=== PATIENT | male | born 1960 | race Caucasian/White ===

== ENCOUNTER 2020-10-24 15:47 | Emergency (ER) | payer OTHER, SELFPAY ==
[2020-10-24 17:10] LABS: ALT (SGPT) 59 U/L (8-55); AST (SGOT) 48 U/L (5-34); Albumin 3.9 g/dL (3.4-4.8); Alkaline Phosphatase 142 U/L (40-110); Anion Gap 18 mmol/L (10-20); BUN (Urea Nitrogen) 20 mg/dL (8.4-25.7); Bilirubin, Total 0.7 mg/dL (0.2-1.2); Calc. Creatinine Clearance 0 mL/min (70-130); Calcium 9.5 mg/dL (7.8-10.44); Carbon Dioxide 23 mmol/L (23-31); Chloride 97 mmol/L (98-107); Globulin 4.6 g/dL (2.4-3.5); Glucose 102 mg/dL (80-115); Potassium 3.7 mmol/L (3.5-5.1); Protein, Total 8.5 g/dL (5.8-8.1); Sodium 134 mmol/L (136-145)
[2020-10-24 17:21] LABS: Band 13 % (5-11); Hemoglobin 14.2 g/dL (14.0-18.0); Lymphocytes 16 % (21-51); MDiff Complete? YES; Mean Corpuscular HGB CONC 34.2 g/dL (32.0-36.0); Mean Corpuscular Volume 87.8 fL (78.0-98.0); Monocytes 16 % (0-10); Neutrophil 52 % (42-75); Platelet Count 264 thou/uL (130-400); RBC Distribution Width 13.8 % (11.5-14.5); Reactive Lymphocytes 3 % (0-10); Red Blood Cell (RBC) Count 4.73 mill/uL (4.70-6.10)
[2020-10-24 17:28] LABS: CKMB 1.5 ng/mL (0-6.6)
[2020-10-24] MEDS ORDERED: Aspirin Chewable 81 MG TAB ONE (17:39)
[2020-10-24] MEDS ORDERED: Azithromycin 500 MG VIAL ONE (17:40)
[2020-10-24] MEDS ORDERED: cefTRIAXone\\ROCEPHIN 2 GM VIAL ONE (17:40)
[2020-10-24] MEDS ORDERED: Ondansetron PF 4 MG/2 ML Vial ONE (17:48)
--- NOTE | 2020-10-24 18:06 | RAD ---
PORTABLE CHEST: 10/24/20 An AP portable film at 1652 shows a dense consolidation in the left upper lobe. The right lung seems clear. The heart is upper normal in size but there is no congestive change or large pleural effusions . IMPRESSION: Left sided pneumonia. POS: HOME
--- NOTE | 2020-10-24 18:11 | CT ---
CT ANGIO OF THE CHEST WITH CONTRAST: 10/24/[address] of the chest was done for evaluation of cough with hemoptysis. There is a dense consolidation in the basilar portions of the left upper lobe consistent with pneumon ia. There is also some infiltration in the superior part of the left lower lobe, as well as the poste rior portions. The right lung seems clear with no major infiltrate or effusion. The pulmonary arteries are moderately well opacified yielding a moderate sensitivity for pulmonary em bolism. None were detected in the large to medium sized pulmonary arteries. The more distal branches and smaller arteries are not seen well enough to comment upon. There is no sign of aortic aneurysm or dissection. No mediastinal mass was seen. one lymph node in the aorticopulmonary window is about 1.9 cm in size, but there is no plethora of lymph nodes elsewhere of concern. Scans into the upper abdomen showed no adrenal masses or acute changes in the area scanned. IMPRESSION: 1. Dense left upper lobe pneumonia with also some minimal infiltrates beginning in the left lowe r lobe. 2. Medium sensitivity study for pulmonary embolism. No evidence of embolism at this time in the larger to medium sized branches. Preliminary findings discussed with Dr. Drew at 1756 on 10/24/20. POS: HOME
[2020-10-24 22:44] LABS: SARS-CoV-2 NAA Rapid Test Not Detected (NotDetected)
== END 2020-10-24 18:45 | disposition short-term general hospital (02) ==
LOC: BURERS 15:47
DX: J18.9 Pneumonia, unspecified organism (principal); R07.9 Chest pain, unspecified; Z79.899 Other long term (current) drug therapy; F17.210 Nicotine dependence, cigarettes, uncomplicated; Z20.828 Contact with and (suspected) exposure to other viral communicable diseases
CPT/HCPCS: 0240U; 71045; 71275; 80053; 82553; 84484; 85025; 85379; 93005; 96365; 96375; J0456; J0696; J2405